=== PATIENT | female | born 1945 | race African-American/Black ===

== ENCOUNTER → 2021-07-20 | Outpatient (CLI) | payer MEDICARE ==
[~2021-07-20] MED LIST: REGADENOSON 0.4 MG/5 ML DISP.SYRIN. IV ONE
--- NOTE | 2021-07-20 15:09 | RAD ---
MR#: [id number] Date of Study: 07/20/2021 Ordering Physician: DESIREE SORIA, Referring Physician: JULI DEWITT Tech: EJ Dawson, ARRT (R) (N) APPROVED REPORT Test Type: Pharmacological Stress Nurse/Tech: Mag MAY Test Indications: CHEST PAIN Cardiac History: high cholesterol, HTN, DM Medications: See EMR Medical History: See EMR Resting ECG: SB Resting Heart Rate: 49 bpm Resting Blood Pressure: 131/73mmHg Pretest Chest Pain: None Nurse/Tech Notes Lungs clear, no SOA. Normal heart tones, S1S2. No chest pain. Pharm. Details Pharmacologic stress testing was performed using 0.4mg per 5ml of regadenoson given intravenously ove r 7-10 seconds. Stress Symptoms Flushing, headache. No SOA, No chest pain. All symptoms resolved by end of recovery period. POST EXERCISE Reason for Termination: Infusion complete Max HR: 110 bpm Max Blood Pressure: 163/70mmHg Blood Pressure response to exercise: Normal blood pressure response during stress. Heart Rate response to exercise: normal response. Chest Pain: No. Arrhythmia: No. ST Change: No. INTERPRETATION Stress EKG Conclusion: Baseline EKG showed sinus rhythm. No ischemic changes at peak stress. No arr hythmias. Imaging Protocol IMAGE PROTOCOL: Rest Tc-99m/stress Tc-99m 1 day Rest: Stress: Viability: Radiopharm.Tc99m VvpynidflFp42d Sestamibi Dose10.2mCi 29mCi Img Date 07/20/2021 07/20/2021 Inj-Img [id number]. 60min. Rest Admin Site:IV - Right ForearmAdministrator:EJ Dawson, ARRT (R)(N) Stress Admin Site: IV - Right ForearmAdministrator: Stanley Ron RT (R)(N) STRESS DATA End Diast. Vol.41.0mlAv. Heart Rate63.0bpm End Syst. Vol.3.0mlCO Index BSA0.0L/min Myocardial Mass89.0gEject. Uecnkklc10.0% Stress Rates Pk. Fill Rate2.52EDV/secLVtime Pk. Fill 130.31msec Pk. Empty Rate5.22ESV/secLVtime Pk. Ftych096.74msec /3 Pk. Fill1.69EDV/sec Stress Scores Regional WT0.00Summed WT0.00 Regional WM0.00Summed WM0.00 Study quality was good. Left Ventricular size was Normal at Rest and Stress. Lung uptake was . Left Ventricular ejection fraction is >80%. The rest and stress images show normal perfusion, normal contraction and thickening. LV Perf. Quant 17 Seg. SSS0.00 17 Seg. SRS1.00 17 Seg. SDS0.00 Stress Defect Extent (% LAD)0.00Rest Defect Extent (% LAD)0.00Rev. Defect Extent (% LAD)0.00 Stress Defect Extent (% LCX) 0.00Rest Defect Extent (% LCX)0.00Rev. Defect Extent (% LCX)0.00 Stress Defect Extent (% RCA)0.00Rest Defect Extent (% RCA)0.00Rev. Defect Extent (% RCA)0.00 Stress Defect Extent (% TIERRA)0.00Rest Defect Extent (% TIERRA)0.90Rev. Defect Extent (% TIERRA)0.00 Conclusion 1. Regadenoson cardioisotope stress test did not show any evidence of ischemia or infarct. 2. Normal left ventricular systolic function with ejection fraction calculated at >80%. 3. Low risk for cardiac events. Signed by : Dong Akins, Electronically Approved : 07/20/2021 15:08:52
== END ==
LOC: NM 08:23
PROVIDERS: ATTEND Internal Medicine Cardiovascular Disease
DX: R07.9 Chest pain, unspecified (principal)
CPT/HCPCS: 78452; 93017; A9500; J2785